=== PATIENT | male | born 1995 | race Caucasian/White ===

== ENCOUNTER 2020-10-26 00:02 | Emergency (ER) | payer BC, OTHER ==
[2020-10-26 00:05] VITALS: TEMP 97.8
[2020-10-26] MEDS ORDERED: PANTOPRAZOLE 40 MG/10 ML VIAL IVP STA (00:19)
[2020-10-26] MEDS ORDERED: SODIUM CHLORIDE 0.9% 1,000 ML IV STA (00:19)
[2020-10-26] MEDS ORDERED: ONDANSETRON 4 MG/2 ML VIAL IVP STA (00:19)
[2020-10-26] MEDS ORDERED: DICYCLOMINE 10 MG/ML 2 ML AMP IM STA (00:19)
[2020-10-26] MEDS ORDERED: KETOROLAC 15 MG/ML 1 ML VIAL IVP STA (00:19)
[2020-10-26 00:46] LABS: Basophils # (A) 0.1 k/uL (0-0.2); Basophils % (A) 1 %; Eosinophils # (A) 0.2 k/uL (0-0.7); Eosinophils % (A) 2 %; Lymphocytes # (A) 1.8 k/uL (1.0-4.8); Lymphocytes % (A) 19 %; MCH 32.5 pg (25.0-35.0); MCHC 35.5 g/dL (31.0-37.0); MCV 91.5 fL (80.0-100.0); Mean Platelet Volume 7.5; Monocytes # (A) 0.8 k/uL (0-1.0); Monocytes % (A) 9 %; Neutrophils # (A) 6.4 k/uL (1.3-7.7); Neutrophils % (A) 66 %; Platelet Count 307 k/uL (150-450); RBC 5.24 m/uL (4.30-5.90); RDW 11.7 % (11.5-15.5); WBC 9.7 k/uL (3.8-10.6)
[2020-10-26 00:54] LABS: ALT 18 U/L (4-49); AST 26 U/L (17-59); African American GFR (CKD) >90 (>60 ml/min/1.73 sqM); Albumin 4.7 g/dL (3.5-5.0); Alkaline Phosphatase 73 U/L (38-126); Anion Gap 12 mmol/L; Blood Urea Nitrogen 9 mg/dL (9-20); Calcium 10.1 mg/dL (8.4-10.2); Carbon Dioxide 23 mmol/L (22-30); Chloride 103 mmol/L (98-107); Glucose 114 mg/dL (74-99); Lipase 62 U/L (23-300); Non-African American GFR(CKD) >90 (>60 ml/min/1.73 sqM); Sodium 138 mmol/L (137-145); Total Bilirubin 0.5 mg/dL (0.2-1.3); Total Protein 7.6 g/dL (6.3-8.2)
--- NOTE | 2020-10-26 00:59 | ED ---
Abdominal Pain HPI - General Chief Complaint: Abdominal Pain Stated Complaint: Abd Pain Time Seen by Provider: 10/26/20 00:07 Source: patient Mode of arrival: ambulatory - History of Present Illness Initial Comments: 25-year-old male presents to emergency Department with chief complaint of nausea vomiting and abdominal pain. Patient reports it started about 5 hours prior to arrival. Patient reports began to have pain in the epigastric and right lower quadrant region which was followed by multiple episodes of nonbilious nonbloody vomiting. He denies any associated constipation or diarrhea. Reports the pain is still persistent and not radiate. Does not seem to postprandial. He denies any infectious or obstructive urinary symptoms. Denies any previous abdominal surgeries. - Related Data Previous Rx's Medication Instructions Recorded Ketorolac [Toradol] 10 mg PO Q8HR #15 tab 10/26/20 Ondansetron Odt [Zofran Odt] 4 mg PO Q8HR PRN #14 tab 10/26/20 Tamsulosin [Flomax] 0.4 mg PO DAILY #7 cap 10/26/20 Allergies Allergy/AdvReac Type Severity Reaction Status Date / Time No Known Allergies Allergy Verified 10/26/20 00:05 Review of Systems ROS Statement: Those systems with pertinent positive or pertinent negative responses have been documented in the HPI. ROS Other: All systems not noted in ROS Statement are negative. Past Medical History Past Medical History: No Reported History History of Any Multi-Drug Resistant Organisms: None Reported Past Surgical History: No Surgical Hx Reported Past Psychological History: No Psychological Hx Reported Smoking Status: Current every day smoker Past Alcohol Use History: Occasional Past Drug Use History: Marijuana General Exam Limitations: no limitations General appearance: alert, in no apparent distress Head exam: Present: atraumatic, normocephalic, normal inspection Eye exam: Present: normal appearance, PERRL, EOMI Pupils: Present: normal accommodation ENT exam: Present: normal exam, normal oropharynx, mucous membranes moist Neck exam: Present: normal inspection, full ROM. Absent: tenderness, lymphadenopathy Respiratory exam: Present: normal lung sounds bilaterally. Absent: respiratory distress Cardiovascular Exam: Present: regular rate, normal rhythm, normal heart sounds GI/Abdominal exam: Present: soft, tenderness (Suprapubic and right lower quadrant tenderness). Absent: distended, guarding, rebound, rigid Extremities exam: Present: normal inspection, full ROM, normal capillary refill. Absent: tenderness Back exam: Present: normal inspection, full ROM, CVA tenderness (L). Absent: tenderness, CVA tenderness (R), muscle spasm, paraspinal tenderness, vertebral tenderness Neurological exam: Present: alert, oriented X3 Psychiatric exam: Present: normal affect, normal mood Skin exam: Present: warm, dry, intact, normal color Course Vital Signs 10/26/20 10/26/20 00:03 01:16 Temperature 97.8 F Pulse Rate 73 76 Respiratory 19 20 Rate Blood Pressure 137/95 142/79 O2 Sat by Pulse 98 96 Oximetry Medical Decision Making - Medical Decision Making 25-year-old male presents to emergency Department with chief complaint of nausea vomiting and abdominal pain. On physical examination, suprapubic and right lower quadrant tenderness. However, he has left-sided CVA only. Pain was sudden onset several hours prior to arrival along with the nausea vomiting. Patient was given IV fluids, antiemetics and analgesia. On reevaluation, he reports much improved symptoms. CT of abdomen and pelvis showed a 3 mm obstructing stone on the left UVJ with mild hydronephrosis. Zofran and Tylenol 3 starter packs. I will give him prescription for Toradol, Flomax and Zofran. Advised for urology follow-up. Return parameters were thoroughly discussed with patient is an attending agreeable. Case discussed with physician. - Lab Data Result diagrams: 10/26/20 00:31 10/26/20 00:31 Lab Results 10/26/20 10/26/20 Range/Units 00:31 00:31 WBC 9.7 (3.8-10.6) k/uL RBC 5.24 (4.30-5.90) m/uL Hgb 17.0 (13.0-17.5) gm/dL Hct 48.0 (39.0-53.0) % MCV 91.5 (80.0-100.0) fL MCH 32.5 (25.0-35.0) pg MCHC 35.5 (31.0-37.0) g/dL RDW 11.7 (11.5-15.5) % Plt Count 307 (150-450) k/uL MPV 7.5 Neutrophils % 66 % Lymphocytes % 19 % Monocytes % 9 % Eosinophils % 2 % Basophils % 1 % Neutrophils # 6.4 (1.3-7.7) k/uL Lymphocytes # 1.8 (1.0-4.8) k/uL Monocytes # 0.8 (0-1.0) k/uL Eosinophils # 0.2 (0-0.7) k/uL Basophils # 0.1 (0-0.2) k/uL Sodium 138 (137-145) mmol/L Potassium 4.0 (3.5-5.1) mmol/L Chloride 103 (98-107) mmol/L Carbon Dioxide 23 (22-30) mmol/L Anion Gap 12 mmol/L BUN 9 (9-20) mg/dL Creatinine 0.84 (0.66-1.25) mg/dL Est GFR (CKD-EPI)AfAm >90 (>60 ml/min/1.73 sqM) Est GFR (CKD-EPI)NonAf >90 (>60 ml/min/1.73 sqM) Glucose 114 H (74-99) mg/dL Calcium 10.1 (8.4-10.2) mg/dL Total Bilirubin 0.5 (0.2-1.3) mg/dL AST 26 (17-59) U/L ALT 18 (4-49) U/L Alkaline Phosphatase 73 (38-126) U/L Total Protein 7.6 (6.3-8.2) g/dL Albumin 4.7 (3.5-5.0) g/dL Lipase 62 (23-300) U/L Disposition Clinical Impression: Kidney stone on left side, Hydronephrosis Disposition: HOME SELF-CARE Condition: Stable Instructions (If sedation given, give patient instructions): Kidney Stones (ED) Additional Instructions: Take prescribed medication as directed. Drink plenty of fluids. Follow with urologist. Return to emergency department if symptoms worsen. Prescriptions: Tamsulosin [Flomax] 0.4 mg PO DAILY #7 cap Ketorolac [Toradol] 10 mg PO Q8HR #15 tab Ondansetron Odt [Zofran Odt] 4 mg PO Q8HR PRN #14 tab PRN Reason: Nausea Is patient prescribed a controlled substance at d/c from ED?: No Referrals: None,Stated [Primary Care Provider] - 1-2 days Barry Reagan MD [STAFF PHYSICIAN] - 1-2 days Time of Disposition: 01:48
--- NOTE | 2020-10-26 01:36 | CT ---
EXAMINATION TYPE: CT abdomen pelvis w con DATE OF EXAM: 10/26/2020 COMPARISON: None HISTORY: RLQ pain. no prior on PACS CT DLP: 1200.1 mGycm Automated exposure control for dose reduction was used. CONTRAST: Performed with IV Contrast, patient injected with 100ml mL of Isovue 300. Images obtained from the diaphragm to the floor the pelvis with IV contrast. Lung bases are clear. There is no pleural effusion. Heart size is normal. There is no pericardial eff usion. The liver spleen stomach pancreas gallbladder appear normal. Bile ducts are not dilated. There is no adrenal mass. Kidneys show satisfactory contrast opacification. There is mild left-sided hydronephrosis and hydroureter. There is delayed left side pyelogram. There is a 3 mm calculus at the left ureterovesical junction. There is no retroperitoneal adenopathy. Bladder distends smoothly. The re is no inguinal hernia. There is no free fluid in the pelvis. Appendix is medial and appears normal. There is no mesenteric edema. There is no ascites or free air. There is no sign of a bowel obstruction. The lumbar vertebra have normal spacing and alignment. Posterior elements are intact. There is L5 spo ndylolysis without spondylolisthesis. The bony pelvis is intact. The hip joints are intact. There is no hip dysplasia. IMPRESSION: Obstructing small calculus at the left ureterovesical junction with left-sided hydronephrosis and hyd roureter. This paradoxical since the history is right lower quadrant pain. Normal appendix. 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
[2020-10-26] MEDS ORDERED: ONDANSETRON 4 MG ODT STARTER PACK 2 TAB BTL PO STA (01:46)
[2020-10-26] MEDS ORDERED: ACET/COD 300 MG/30 MG STARTER PACK 6 TAB BTL PO STA (01:47)
[2020-10-26 02:39] VITALS: BP 138/72; PULSE 87; RESP 16
== END 2020-10-26 02:39 | disposition home or self-care (01) ==
LOC: EC 00:02
DX: N13.2 Hydronephrosis with renal and ureteral calculous obstruction (principal); F17.200 Nicotine dependence, unspecified, uncomplicated
CPT/HCPCS: 36415; 80053; 83690; 85025; 74177; 99284; 96374; 96375; 96372; J0500; J2405; J1885; S0119; C9113; Q9967

== ENCOUNTER 2024-08-20 18:12 | Emergency (ER) | payer OTHER ==
--- NOTE | 2024-08-20 19:48 | ED ---
Abdominal Pain HPI - General Chief Complaint: Abdominal Pain Stated Complaint: constipation Time Seen by Provider: 08/20/24 19:45 Source: patient, RN notes reviewed Mode of arrival: ambulatory Limitations: no limitations - History of Present Illness Initial Comments: 29-year-old male presenting for constipation. States he has been having only small bowel movements for approximately 2 weeks. States last bowel movement was a small, hard bowel movement this morning. He was seen by his PCP several days ago who gave him lactulose which he reports has not helped. He has also taken magnesium citrate and given himself at home enemas with little relief. He does endorse some abdominal cramping. Denies nausea/vomiting. He is able to tolerate orals and solids without difficulties. Denies history of abdominal surgeries. - Related Data Previous Rx's Medication Instructions Recorded Ketorolac [Toradol] 10 mg PO Q8HR #15 tab 10/26/20 Ondansetron Odt [Zofran Odt] 4 mg PO Q8HR PRN #14 tab 10/26/20 Tamsulosin [Flomax] 0.4 mg PO DAILY #7 cap 10/26/20 Allergies Allergy/AdvReac Type Severity Reaction Status Date / Time No Known Allergies Allergy Verified 08/20/24 18:17 Review of Systems ROS Statement: Those systems with pertinent positive or pertinent negative responses have been documented in the HPI. ROS Other: All systems not noted in ROS Statement are negative. Past Medical History Past Medical History: No Reported History History of Any Multi-Drug Resistant Organisms: None Reported Past Surgical History: No Surgical Hx Reported Past Psychological History: No Psychological Hx Reported Smoking Status: Current every day smoker Past Alcohol Use History: Occasional Past Drug Use History: Marijuana General Exam Limitations: no limitations General appearance: alert, in no apparent distress Head exam: Present: atraumatic, normocephalic, normal inspection GI/Abdominal exam: Present: soft, normal bowel sounds. Absent: distended, tenderness, guarding, rebound, rigid Rectal exam: Present: other (Patient declined rectal exam as he states he had one performed at urgent care 3 days ago and was normal) Neurological exam: Present: alert, oriented X3 Psychiatric exam: Present: normal affect, normal mood Skin exam: Present: warm, dry, intact, normal color. Absent: rash Course Vital Signs 08/20/24 18:13 Temperature 98.1 F Pulse Rate 82 Respiratory 18 Rate Blood Pressure 112/73 O2 Sat by Pulse 98 Oximetry Medical Decision Making - Medical Decision Making Was pt. sent in by a medical professional or institution (, DEANA, CUSTOM PROTECTION OFFICER, urgent care, hospital, or long term...) When possible be specific @ -No Did you speak to anyone other than the patient for history (EMS, parent, family, police, friend...)? What history was obtained from this source @ -No Did you review nursing and triage notes (agree or disagree)? Why? @ -I reviewed and agree with nursing and triage notes Were old charts reviewed (outside hosp., previous admission, EMS record, old EKG, old radiological studies, urgent care reports/EKG's, long term records)? Report findings @ -No old charts were reviewed Differential Diagnosis (chest pain, altered mental status, abdominal pain women, abdominal pain men, vaginal bleeding, weakness, fever, dyspnea, syncope, headache, dizziness, GI bleed, back pain, seizure, CVA, palpatations, mental health, musculoskeletal)? @ -Differential Abdominal Pain Men: Appendicitis, cholecystitis, diverticulosis, ischemic bowel, pancreatitis, hepatitis, UTI, gastroenteritis, AAA, incarcerated hernia, bowel obstruction, constipation, inflammatory bowel, hepatitis, peptic ulcer disease, splenic infarction, perforated viscus, testicular torsion, this is not meant to be an all-inclusive list EKG interpreted by me (3pts min.). @ -None X-rays interpreted by me (1pt min.). @ -KUB reveals mild to moderate stool burden otherwise no acute process CT interpreted by me (1pt min.). @ -None done U/S interpreted by me (1pt. min.). @ -None done What testing was considered but not performed or refused? (CT, X-rays, U/S, labs)? Why? @ -None What meds were considered but not given or refused? Why? @ -None Did you discuss the management of the patient with other professionals (professionals i.e. DEANA Busch, CUSTOM PROTECTION OFFICER, lab, RT, psych nurse, social studies teacher, general expeditor, teacher, homicide squad commanding officer, onsite case manager)? Give summary @ -No Was smoking cessation discussed for >3mins.? @ -No Was critical care preformed (if so, how long)? @ -No Were there social determinants of health that impacted care today? How? (Homelessness, low income, unemployed, alcoholism, drug addiction, transportation, low edu. Level, literacy, decrease access to med. care, alf, rehab)? @ -No Was there de-escalation of care discussed even if they declined (Discuss DNR or withdrawal of care, Hospice)? DNR status @ -No What co-morbidities impacted this encounter? (DM, HTN, Smoking, COPD, CAD, Canc er, CVA, ARF, Chemo, Hep., AIDS, mental health diagnosis, sleep apnea, morbid obesity)? @ -None Was patient admitted / discharged? Hospital course, mention meds given and route, prescriptions, significant lab abnormalities, going to OR and other pertinent info. @ -Discharge. 29-year-old male presenting for constipation. States he has not had a normal bowel movement in approximately 2 weeks but has small, hard bowel movements daily. Denies current abdominal pain. Abdomen soft nonsurgical. Patient is tolerating orals well. Patient declines rectal exam. KUB reveals mild to moderate stool burden otherwise no acute process. Patient was sent home with magnesium citrate and strict return precautions and supportive/follow-up care. Case was discussed with my ED attending Dr. Menon Undiagnosed new problem with uncertain prognosis? @ -No Drug Therapy requiring intensive monitoring for toxicity (Heparin, Nitro, Insulin, Cardizem)? @ -No Were any procedures done? @ -No Diagnosis/symptom? @ -Constipation Acute, or Chronic, or Acute on Chronic? @ -Acute Uncomplicated (without systemic symptoms) or Complicated (systemic symptoms)? @ -Uncomplicated Side effects of treatment? @ -No Exacerbation, Progression, or Severe Exacerbation? @ -No Poses a threat to life or bodily function? How? (Chest pain, [place], [place], pneumonia, PE, COPD, DKA, ARF, appy, cholecystitis, CVA, Diverticulitis, Homicidal, Suicidal, threat to staff... and all critical care pts) @ -No Disposition Clinical Impression: Constipation Disposition: HOME SELF-CARE Condition: Stable Instructions (If sedation given, give patient instructions): Constipation (ED) Additional Instructions: Drink half of the magnesium citrate bottle when you get home. If no bowel movement in 3 hours, drink the other half. Please return to the Emergency Department if symptoms worsen or any other concerns. Is patient prescribed a controlled substance at d/c from ED?: No Referrals: Josue Turcios MD [Primary Care Provider] - 1-2 days Time of Disposition: 20:39
--- NOTE | 2024-08-20 20:04 | XR ---
EXAMINATION TYPE: XR KUB DATE OF EXAM: 08/20/2024 7:52 PM COMPARISON: None CLINICAL INDICATION: Male, 29 years old with history of constipation; [facility] TECHNIQUE: One radiographic view of the abdomen was obtained. FINDINGS: There is a moderate stool burden, otherwise, the bowel gas pattern is nonspecific without d ilated loops of small or large bowel. . Fecal material and gas are demonstrated throughout the colon and rectum. There is no evidence for organomegaly or pneumoperitoneum. No acute osseous process. No abnormal calcifications are present. IMPRESSION: Small to moderate stool burden. [facility], , 08/20/2024 8:02 PM
[2024-08-20] MEDS: MAGNESIUM CITRATE 296 ML BOTTLE PO ONE (20:50)
[2024-08-20 20:53] VITALS: BP 135/81; PULSE 68; RESP 16; TEMP 98.4
== END 2024-08-20 20:52 | disposition home or self-care (01) ==
LOC: EC 18:12
DX: K59.00 Constipation, unspecified (principal); F17.200 Nicotine dependence, unspecified, uncomplicated
CPT/HCPCS: 74018; 99284